=== PATIENT | male | born 1990 | race African-American/Black ===

== ENCOUNTER 2024-08-08 23:22 | Emergency (ER) | payer SELFPAY ==
[2024-08-09] MEDS: Calcium Carbonate 500 MG Tab.Chew PO ONE (00:30)
[2024-08-09] MEDS: Simethicone 80 MG Tab.Chew PO ONE (00:31)
[2024-08-09] MEDS: Famotidine 20 MG Tab PO ONE (00:31)
[2024-08-09] MEDS: Lidocaine 2% Viscous Solution 15 ML UD PO ONE (00:32)
[2024-08-09 01:48] VITALS: BP 136/71; PULSE 50
== END 2024-08-09 01:48 | disposition home or self-care (01) ==
LOC: MW.ED 23:22
DX: K21.9 Gastro-esophageal reflux disease without esophagitis (principal); R10.13 Epigastric pain
CPT/HCPCS: 71045; 74019; 99284; A9270; 99282